=== PATIENT | female | born 2000 | race Hispanic/Latino ===

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

== ENCOUNTER 2020-04-14 09:31 | Outpatient (CLI) | payer OTHER ==
--- NOTE | 2020-04-14 10:29 | ULT ---
Thyroid ultrasound: 04/14/2020 COMPARISON: None HISTORY: Neck swelling, cystic lesion TECHNIQUE: Multiplanar grayscale sonographic imaging of the thyroid gland obtained. FINDINGS: The thyroid gland is diffusely enlarged. The thyroid isthmus measures 1.1 cm in AP dimensio n. The left thyroid lobe measures 5.3 x 2.6 x 2.5 cm and the right thyroid lobe measures 6.0 x 3.1 x 2.4 cm. No discrete thyroid nodule is seen. The thyroid gland appears diffusely hypervascular as we ll. IMPRESSION: Diffusely enlarged thyroid gland. No evidence for thyroid nodule. Question a history of G raves' disease.
== END 2020-04-14 09:32 | disposition home or self-care (01) ==
LOC: BICULT 09:31
PROVIDERS: ATTEND Family Medicine
DX: R22.1 Localized swelling, mass and lump, neck (principal); E04.9 Nontoxic goiter, unspecified
CPT/HCPCS: 76536

== ENCOUNTER 2021-01-21 09:32 | Outpatient (CLI) | payer OTHER | END 2021-01-21 09:33 | disposition home or self-care (01) | LOC: BICRAD 09:32 | PROVIDERS: ATTEND Family Medicine | DX: A15.9 Respiratory tuberculosis unspecified (principal) | CPT/HCPCS: 71046 ==